=== PATIENT | male | born 1995 | race Caucasian/White ===

== ENCOUNTER 2021-06-12 22:27 | Emergency (ER) | payer OTHER ==
[~2021-06-12] VITALS: Ht 177.8 cm; Wt 72.6 kg
[2021-06-12 22:35] VITALS: BP 112/60
--- NOTE | 2021-06-12 22:38 | NUR ---
TO LOBBY A/W BED AMBULATORY
--- NOTE | 2021-06-12 22:45 | NUR ---
PT AMBULATORY TO BED #5
[2021-06-12 22:50] VITALS: BP 112/60
--- NOTE | 2021-06-12 23:23 | NUR ---
Dr. Owens examining patient.
--- NOTE | 2021-06-12 23:30 | NUR ---
25 Y/O MALE WITH C/O LACERATION TO TOP OF HEAD AND IT STARTED TO BLEED .PT HIT HEAD WALKING UNDENEATH AN AC UNIT. PT HAD A SYNCOPAL EPISODE OF ABOUT 20 SECONDS. PT STATED HIS LEGS FELT WEAK AND GAVE OUT UNDER HIM. CALLED MOTHER AND SHE CLEANED WITH PEROXIDE. SLIGHT SWELLING TO LACERATION. LACERATION NOT ACTIVELY BLEEDING AT THIS TIME. DENIES N/V/D; SKIN IS PINK/WARM/DRY; AAOX4 WITH EVEN AND STEADY GAIT; LUNGS CLEAR BL; HR EVEN AND REGULAR; PT DENIES ANY FEVER, CP, SOB, OR COUGH AT THIS TIME; PATIENT STATES PAIN OF 4/10 AT THIS TIME; VSS; PATIENT POSITIONED FOR COMFORT; HOB ELEVATED; BEDRAILS UP X2; BED DOWN. ER MD MADE AWARE OF PT STATUS. NO PMH NKA
--- NOTE | 2021-06-12 23:31 | NUR ---
PT TAKEN TO CT
--- NOTE | 2021-06-12 23:39 | NUR ---
PT RETURN FROM CT
[2021-06-13] MEDS ORDERED: IBUP-2213 PO (01:33)
== END 2021-06-13 01:42 | disposition home or self-care (01) ==
LOC: MED 22:27
DX: S01.01XA Laceration without foreign body of scalp, initial encounter (principal); F17.200 Nicotine dependence, unspecified, uncomplicated; Z79.899 Other long term (current) drug therapy; Z71.6 Tobacco abuse counseling; W22.8XXA Striking against or struck by other objects, initial encounter; Y93.01 Activity, walking, marching and hiking; Y92.89 Other specified places as the place of occurrence of the external cause; Y99.8 Other external cause status
CPT/HCPCS: 70450; 99284